=== PATIENT | female | born 1985 | race Two or more races ===

== ENCOUNTER 2016-08-25 13:37 | Emergency (ER) | payer SELFPAY ==
[~2016-08-25] VITALS: Ht 160 cm; Wt 53.7 kg
[~2016-08-25 13:37] MED LIST: ADVAIR 100/501 DISK IH; ADVAIR 250-501 EACH IH; ADVAIR 250/501 DISK IH; ALBUTEROL SULF8.5 GM; ALBUTEROL17 GM IH; AMBIEN10 MG PO; AMBIEN5 MG PO; ATROVENT H200 INHALA IH; AUGMENTIN875 MG PO; Advair HFA 115/21 IH; Ambien PO; BUPROPION XL300 MG PO; BUSPAR10 MG PO; BUSPAR15 MG PO; CITALOPRAM HBR20 MG PO; CLINDAMYCIN HC300 MG PO; CLONAZEPAM0.5 MG PO; CLONAZEPAM1 MG PO; CLONIDINE HCL0.1 MG PO; CORTIZONE-1028 GM TP; CYMBALTA20 MG PO; DELTASONE20 M1 PO; DISKETS40 MG PO; FLEXERIL10 MG PO; FLEXERIL5 MG PO; HYDROXYZINE PAM25 MG PO; IBUPROFEN800 MG PO; K-DUR20 MEQ PO; KLONOPIN1 MG PO; LAMICTAL100 MG PO; LAXATIVE5 M1 PO; LEVAQUIN750 MG PO; LITHIUM CARBON150 MG PO; MEDROL DOSEPAK4 MG PO; METHADONE10 MG PO; METRONIDAZOLE500 MG PO; MIRTAZAPINE30 MG PO; MOBIC7.5 MG PO; MOTRIN IB200 MG PO; MOTRIN600 MG PO; MOTRIN800 MG PO; NO HOME MEDS; NORCO 5/3251 TABLET PO; NUVARING VAGIN1 EACH VG; PERCOCET 5/31 TABLET PO; PRENACARE TABL1 EACH PO; PROAIR HFA8.5 GM IH; PROVENTIL HFA6.7 GM IH; PROVENTIL,2.5 MG/3 M IH; Proventil,Ventolin H IH; REMERON30 M2 PO; Remeron PO; SEROQUEL100 MG PO; Sterapred DS 10 mg U PO; TRAMADOL HCL50 MG PO; TRAZODONE HCL50 MG PO; VENTOLIN HFA18 GM IH; VYVANSE10 MG PO; WELLBUTRIN75 MG PO
[2016-08-25 14:14] LABS: HEMATOCRIT 35.1 % (36.0-46.0); MCH 27.5 PG (29.0-34.0); MCHC 33.9 G/DL (30.0-36.0); MCV 81.1 FL (83-99); MEAN PLAT.VOLUME 10.2 uM^3 (9.5-12.4); PLATELET COUNT 273 K/uL (156-360); RBC DIS.WIDTH-CV 14.3 % (11.8-14.6); RBC DIS.WIDTH-SD 41.3 % (39-53); RED BLOOD COUNT 4.33 M/uL (3.80-5.20); WHITE BLOOD COUNT 6.3 K/uL (4.1-10.2)
[2016-08-25 14:19] LABS: CHLORIDE 106 mEq/L (99-109); POTASSIUM 3.7 mEq/L (3.7-5.4); SODIUM 142 mEq/L (136-147)
[2016-08-25 14:21] LABS: GLUCOSE 81 mg/dL (70-99)
[2016-08-25 14:23] LABS: ANION GAP 7 MEQ/L (2-14); TOTAL BILIRUBIN 0.2 mg/dL (0.0-1.0)
[2016-08-25 14:25] LABS: ALKALINE PHOSPHATASE 40 IU/L (3-129); GFR ESTIMATE (CALCULATED) > 59 mL/min/
[2016-08-25 14:26] LABS: UREA NITROGEN (BUN) 13 mg/dL (9-23)
[2016-08-25 14:28] LABS: LIPASE 30 U/L (1.0-51.0)
[2016-08-25 14:38] LABS: QUANTITATIVE HCG 4.4 MIU/ML
[2016-08-25 15:11] LABS: ADD MIUA? NO; BILIRUBIN NEGATIVE; BLOOD NEGATIVE; COLOR YELLOW ((YELLOW)); GLUCOSE (STRIP) NEGATIVE; KETONES NEGATIVE; LEUKOCYTES NEGATIVE; NITRITE NEGATIVE; PROTEIN (STRIP) NEGATIVE; SPECIFIC GRAVITY 1.007 (1.000-1.030); UCUL ADDED? NO; UROBILINOGEN 0.2 MG/DL (0.2-1.0)
[2016-08-25] MEDS ORDERED: PROTONIX40 MG PO (16:24)
[2016-08-25] MEDS ORDERED: CARAFATE1 GM PO (16:24)
[2016-08-25 16:37] VITALS: BP 113/73
== END 2016-08-25 16:45 | disposition home or self-care (01) ==
LOC: RME 13:37 → EME 13:37 → RME 16:45
DX: R10.9 Unspecified abdominal pain (principal)
CPT/HCPCS: 80053; 81003; 83690; 84702; 85027; 99281; 99283

== ENCOUNTER 2016-09-25 04:05 | Inpatient (IN) | payer OTHER ==
[~2016-09-25] VITALS: Ht 160 cm; Wt 52.3 kg
[~2016-09-25 04:05] MED LIST changes: +CARAFATE1 GM PO; +GABAPENTIN400 MG PO; +LAMICTAL150 M1 PO; +OMEPRAZOLE20 MG PO; +PROTONIX40 MG PO; +VYVANSE50 MG PO; +WELLBUTRIN XL150 MG PO; +WELLBUTRIN XL300 MG PO
[2016-09-25 04:36] LABS: EOSINOPHIL COUNT 0.2 K/uL (0-0.3); HEMATOCRIT 35.7 % (36.0-46.0); IMMATURE GRANULOCYTE (%) 0.2 % (0.0-0.7); IMMATURE GRANULOCYTE COUNT 0.1 K/uL; LYMPHOCYTE COUNT 1.4 K/uL (1.0-2.8); MCH 28.8 PG (29.0-34.0); MCHC 34.7 G/DL (30.0-36.0); MONOCYTE (%) 8.9 % (3-12); MONOCYTE COUNT 0.5 K/uL (0-0.8); NEUTROPHIL (%) 60.2 % (45-76); NEUTROPHIL COUNT 3.2 K/uL (1.8-6.4); PLATELET COUNT 289 K/uL (156-360); RBC DIS.WIDTH-CV 13.9 % (11.8-14.6); RBC DIS.WIDTH-SD 40.8 % (39-53); WHITE BLOOD COUNT 5.3 K/uL (4.1-10.2)
[2016-09-25 04:47] LABS: CHLORIDE 109 mEq/L (99-109); SODIUM 140 mEq/L (136-147)
[2016-09-25 04:49] LABS: GLUCOSE 91 mg/dL (70-99); POTASSIUM 3.1 mEq/L (3.7-5.4)
[2016-09-25 04:50] LABS: ANION GAP 12 MEQ/L (2-14)
[2016-09-25 04:51] LABS: TOTAL BILIRUBIN 0.7 mg/dL (0.0-1.0)
[2016-09-25 04:52] LABS: SERUM ETHYL ALCOHOL < 10 mg/dL
[2016-09-25 04:53] LABS: ALKALINE PHOSPHATASE 55 IU/L (3-129); GFR ESTIMATE (CALCULATED) > 59 mL/min/
[2016-09-25 04:55] LABS: UREA NITROGEN (BUN) 13 mg/dL (9-23)
[2016-09-25 04:56] LABS: SALICYLATE < 5.0 MG/DL (15-30)
[2016-09-25 05:04] LABS: QUANTITATIVE HCG < 4.0 MIU/ML
[2016-09-25] MEDS ORDERED: FISH OIL300 MG PO (07:14)
[2016-09-25] MEDS ORDERED: VITAMIN B-1250 MG PO (07:14)
[2016-09-25 08:47] LABS: ADD MIUA? NO; BILIRUBIN NEGATIVE; BLOOD NEGATIVE; COLOR YELLOW ((YELLOW)); GLUCOSE (STRIP) NEGATIVE; KETONES 15; LEUKOCYTES NEGATIVE; NITRITE NEGATIVE; PROTEIN (STRIP) NEGATIVE; SPECIFIC GRAVITY 1.021 (1.000-1.030); UCUL ADDED? NO; UROBILINOGEN 0.2 MG/DL (0.2-1.0)
[2016-09-25 08:55] LABS: AMPHETAMINE PRESUMPTIVE POSITIVE (500 ng/mL); BARBITURATES NEGATIVE (200 ng/mL); BENZODIAZEPINES PRESUMPTIVE POSITIVE (150 ng/mL); COCAINE PRESUMPTIVE POSITIVE (150 ng/mL); INTERNAL CONTROLS VALID? YES; METHADONE NEGATIVE (200 ng/mL); METHAMPHETAMINE PRESUMPTIVE POSITIVE (500 ng/mL); OPIATES (MORPHINE) NEGATIVE (100 ng/mL); OXYCODONE NEGATIVE (100 ng/mL); PHENCYCLIDINE NEGATIVE (25 ng/mL); PROPOXYPHENE NEGATIVE (300 ng/mL); THC CANNABINOIDS NEGATIVE (50 ng/mL); TRICYCLIC ANTIDEPRESSANTS NEGATIVE (300 ng/mL)
[2016-09-25 08:56] LABS: ADD MEDTOX COMMENT Y
[2016-09-25 09:29] LABS: BENZODIAZEPINES, URINE SCREEN POSITIVE (200 ng/mL)
[2016-09-25 20:45] VITALS: BP 110/63
[2016-09-25 21:33] VITALS: BP 110/63
[2016-09-26 07:50] VITALS: BP 110/52
[2016-09-26 15:47] VITALS: BP 114/74
[2016-09-27 07:56] VITALS: BP 107/60
[2016-09-27 15:33] VITALS: BP 100/62
[2016-09-28 09:49] VITALS: BP 130/56
[2016-09-28 15:45] VITALS: BP 129/80
[2016-09-29 09:18] VITALS: BP 110/62
[2016-09-29] MEDS ORDERED: GABAPENTIN300 MG PO (09:32)
[2016-09-29] MEDS ORDERED: RISPERDAL2 MG PO (09:32)
== END 2016-09-29 11:13 | disposition home or self-care (01) | DRG 880 ==
LOC: EME 04:05 → EDOF 14:39 → 1WEST 14:39
PROVIDERS: Emergency Medicine
DX: F41.1 Generalized anxiety disorder (principal); F15.180 Other stimulant abuse with stimulant-induced anxiety disorder; F11.20 Opioid dependence, uncomplicated; F19.20 Other psychoactive substance dependence, uncomplicated; F31.89 Other bipolar disorder; F14.180 Cocaine abuse with cocaine-induced anxiety disorder; F43.10 Post-traumatic stress disorder, unspecified; J45.909 Unspecified asthma, uncomplicated; E87.6 Hypokalemia; S60.812A Abrasion of left wrist, initial encounter; X78.9XXA Intentional self-harm by unspecified sharp object, initial encounter
CPT/HCPCS: 80053; 81003; 84132; 84702; 84999; 85025; 90837; 94640; 94640 76; 97150 GO; 97166 GO; 99202; 99281; 99285; G0480; Q0177

== ENCOUNTER 2016-10-09 18:30 | Emergency (ER) | payer OTHER ==
[~2016-10-09] VITALS: Ht 160 cm; Wt 52.3 kg
[~2016-10-09 18:30] MED LIST changes: +FISH OIL300 MG PO; +GABAPENTIN300 MG PO; +RISPERDAL2 MG PO; +VITAMIN B-1250 MG PO
[2016-10-09 19:40] LABS: ADD MIUA? YES; BILIRUBIN NEGATIVE; BLOOD LARGE; COLOR YELLOW ((YELLOW)); GLUCOSE (STRIP) NEGATIVE; KETONES NEGATIVE; LEUKOCYTES TRACE; NITRITE NEGATIVE; PROTEIN (STRIP) 30; SPECIFIC GRAVITY 1.006 (1.000-1.030); UROBILINOGEN 0.2 MG/DL (0.2-1.0)
[2016-10-09 19:51] LABS: BACTERIA RARE /HPF; EPITHELIAL CELLS RARE /HPF; MUCUS TRACE /LPF; RED BLOOD CELLS TNTC /HPF (0-5); UCUL ADDED? NO; UNCLASSIFIED CRYSTALS 3+ /HPF; WHITE BLOOD CELLS 0-5 /HPF (0-5)
[2016-10-09 19:52] LABS: CHLORIDE 104 mEq/L (99-109); SODIUM 139 mEq/L (136-147)
[2016-10-09 19:54] LABS: GLUCOSE 82 mg/dL (70-99)
[2016-10-09 19:56] LABS: ANION GAP 10 MEQ/L (2-14); TOTAL BILIRUBIN 0.3 mg/dL (0.0-1.0)
[2016-10-09 19:58] LABS: ALKALINE PHOSPHATASE 55 IU/L (3-129); GFR ESTIMATE (CALCULATED) > 59 mL/min/
[2016-10-09 19:59] LABS: UREA NITROGEN (BUN) 11 mg/dL (9-23)
[2016-10-09 20:06] LABS: QUANTITATIVE HCG < 4.0 MIU/ML
[2016-10-09 20:16] LABS: HEMATOCRIT 39.4 % (36.0-46.0); MCH 28.8 PG (29.0-34.0); MCV 84.7 FL (83-99); MEAN PLAT.VOLUME 9.8 uM^3 (9.5-12.4); PLATELET COUNT 302 K/uL (156-360); RBC DIS.WIDTH-CV 13.4 % (11.8-14.6); RED BLOOD COUNT 4.65 M/uL (3.80-5.20); WHITE BLOOD COUNT 4.9 K/uL (4.1-10.2)
[2016-10-09] MEDS ORDERED: TORADOL10 MG PO (20:43)
[2016-10-09 20:55] VITALS: BP 135/99
== END 2016-10-09 20:57 | disposition home or self-care (01) ==
LOC: EME 18:30
DX: N94.6 Dysmenorrhea, unspecified (principal); F17.200 Nicotine dependence, unspecified, uncomplicated
CPT/HCPCS: 80053; 81003; 84702; 85027; 86900; 86901; 99281; 99284

== ENCOUNTER 2016-10-15 13:34 | Inpatient (IN) | payer OTHER ==
[~2016-10-15] VITALS: Ht 160 cm; Wt 58.3 kg
[~2016-10-15 13:34] MED LIST changes: +TORADOL10 MG PO
[2016-10-15] MEDS ORDERED: VIVITROL380 MG/3.4 IM (14:07)
[2016-10-15] MEDS ORDERED: ADVAIR 250/501 DISK IH (14:09)
[2016-10-15] MEDS ORDERED: SEROQUEL100 MG PO (14:10)
[2016-10-15] MEDS ORDERED: VISTARIL25 MG PO (14:10)
[2016-10-15] MEDS ORDERED: VYVANSE50 MG PO (14:13)
[2016-10-15 15:10] LABS: EOSINOPHIL (%) 3.7 % (0-5); EOSINOPHIL COUNT 0.2 K/uL (0-0.3); IMMATURE GRANULOCYTE (%) 0.2 % (0.0-0.7); IMMATURE GRANULOCYTE COUNT 0.1 K/uL; LYMPHOCYTE COUNT 1.6 K/uL (1.0-2.8); MCH 29.2 PG (29.0-34.0); MCV 83.5 FL (83-99); MEAN PLAT.VOLUME 9.9 uM^3 (9.5-12.4); MONOCYTE (%) 7.7 % (3-12); MONOCYTE COUNT 0.5 K/uL (0-0.8); NEUTROPHIL (%) 61.5 % (45-76); NEUTROPHIL COUNT 3.7 K/uL (1.8-6.4); PLATELET COUNT 274 K/uL (156-360); RBC DIS.WIDTH-CV 13.2 % (11.8-14.6); RBC DIS.WIDTH-SD 39.8 % (39-53); RED BLOOD COUNT 4.31 M/uL (3.80-5.20)
[2016-10-15 15:19] LABS: CHLORIDE 105 mEq/L (99-109); SODIUM 139 mEq/L (136-147)
[2016-10-15 15:21] LABS: GLUCOSE 87 mg/dL (70-99)
[2016-10-15 15:22] LABS: ANION GAP 9 MEQ/L (2-14)
[2016-10-15 15:25] LABS: GFR ESTIMATE (CALCULATED) > 59 mL/min/
[2016-10-15 15:26] LABS: UREA NITROGEN (BUN) 7 mg/dL (9-23)
[2016-10-15 15:27] LABS: CREATINE KINASE 123 IU/L (1-294)
[2016-10-15 15:38] LABS: QUANTITATIVE HCG < 4.0 MIU/ML
[2016-10-15 15:57] LABS: ADD MEDTOX COMMENT Y; AMPHETAMINE PRESUMPTIVE POSITIVE (500 ng/mL); BARBITURATES NEGATIVE (200 ng/mL); BENZODIAZEPINES PRESUMPTIVE POSITIVE (150 ng/mL); COCAINE NEGATIVE (150 ng/mL); INTERNAL CONTROLS VALID? YES; METHADONE NEGATIVE (200 ng/mL); METHAMPHETAMINE NEGATIVE (500 ng/mL); OPIATES (MORPHINE) NEGATIVE (100 ng/mL); OXYCODONE NEGATIVE (100 ng/mL); PHENCYCLIDINE NEGATIVE (25 ng/mL); PROPOXYPHENE NEGATIVE (300 ng/mL); THC CANNABINOIDS NEGATIVE (50 ng/mL); TRICYCLIC ANTIDEPRESSANTS NEGATIVE (300 ng/mL)
[2016-10-15] MEDS ORDERED: IBUPROFEN400 MG PO (16:47)
[2016-10-15] MEDS ORDERED: WELLBUTRIN XL150 MG PO (16:47)
[2016-10-15] MEDS ORDERED: LYRICA50 MG PO (16:48)
[2016-10-15] MEDS ORDERED: PROAIR HFA8.5 GM IH (16:48)
[2016-10-15] MEDS ORDERED: RISPERDAL2 MG PO (16:48)
[2016-10-15] MEDS ORDERED: NEURONTIN400 MG PO (16:48)
[2016-10-15] MEDS ORDERED: WOMEN'S BIOMUL1 EACH PO (16:49)
[2016-10-15] MEDS ORDERED: CYANOCOBALAM1000 MCG PO (16:49)
[2016-10-15 18:38] LABS: BENZODIAZEPINES QUANT VALUE 0 NG/ML
[2016-10-15 18:44] LABS: BENZODIAZEPINES, URINE SCREEN Negative (200 ng/mL)
[2016-10-15 20:17] VITALS: BP 122/62
[2016-10-16] VITALS: BP 102/62
[2016-10-16 04:17] VITALS: BP 100/62
[2016-10-16 06:12] LABS: ANION GAP 6 MEQ/L (2-14); CHLORIDE 109 MEQ/L (99-109); GFR ESTIMATE (CALCULATED) > 59 mL/min/; GLUCOSE 79 mg/dL (70-99); POTASSIUM 3.8 MEQ/L (3.7-5.4); SAMPLE HEMOLYSIS CHECK 0; SAMPLE ICTERIC CHECK 0; SAMPLE LIPEMIA CHECK 0; SODIUM 141 MEQ/L (136-147); UREA NITROGEN (BUN) 8 mg/dL (9-23)
[2016-10-16 08:03] VITALS: BP 115/70
[2016-10-16 11:25] VITALS: BP 100/75
[2016-10-16 15:41] VITALS: BP 103/57
[2016-10-16 20:17] VITALS: BP 100/55
[2016-10-17 00:46] VITALS: BP 98/52
[2016-10-17 03:44] VITALS: BP 92/49
[2016-10-17 07:36] LABS: EOSINOPHIL (%) 5.6 % (0-5); EOSINOPHIL COUNT 0.3 K/uL (0-0.3); HEMATOCRIT 32.3 % (36.0-46.0); IMMATURE GRANULOCYTE (%) 0.2 % (0.0-0.7); LYMPHOCYTE COUNT 1.8 K/uL (1.0-2.8); MCHC 33.1 G/DL (30.0-36.0); MCV 87.5 FL (83-99); MEAN PLAT.VOLUME 10.4 uM^3 (9.5-12.4); MONOCYTE (%) 5.6 % (3-12); MONOCYTE COUNT 0.3 K/uL (0-0.8); NEUTROPHIL (%) 51.9 % (45-76); NEUTROPHIL COUNT 2.6 K/uL (1.8-6.4); PLATELET COUNT 238 K/uL (156-360); RBC DIS.WIDTH-CV 13.9 % (11.8-14.6); RBC DIS.WIDTH-SD 44.5 % (39-53); RED BLOOD COUNT 3.69 M/uL (3.80-5.20)
[2016-10-17 07:47] LABS: ANION GAP 5 MEQ/L (2-14); CHLORIDE 110 MEQ/L (99-109); GFR ESTIMATE (CALCULATED) > 59 mL/min/; GLUCOSE 85 mg/dL (70-99); POTASSIUM 4.2 MEQ/L (3.7-5.4); SAMPLE HEMOLYSIS CHECK 0; SAMPLE ICTERIC CHECK 0; SAMPLE LIPEMIA CHECK 0; SODIUM 141 MEQ/L (136-147); UREA NITROGEN (BUN) 12 mg/dL (9-23)
[2016-10-17 08:00] VITALS: BP 106/65
[2016-10-17 11:23] VITALS: BP 119/60
[2016-10-17] MEDS ORDERED: KEPPRA500 MG PO (14:23)
== END 2016-10-17 15:37 | disposition home or self-care (01) | DRG 101 ==
LOC: EME 13:34 → 4SOUTH 17:10 → EDOF 17:10 → 4SOUTH 19:35
PROVIDERS: Emergency Medicine; Internal Medicine
DX: G40.409 Other generalized epilepsy and epileptic syndromes, not intractable, without status epilepticus (principal); F11.20 Opioid dependence, uncomplicated; F31.30 Bipolar disorder, current episode depressed, mild or moderate severity, unspecified; J45.909 Unspecified asthma, uncomplicated; F41.9 Anxiety disorder, unspecified; F19.10 Other psychoactive substance abuse, uncomplicated
CPT/HCPCS: 70450; 80048; 82550; 84702; 84999; 85025; 93005; 94640; 94640 76; 95819; 99202; 99281; 99285; J1200; J1885; J1953; J2060; J2765; J7030; J7050

== ENCOUNTER 2016-10-31 03:15 | Emergency (ER) | payer OTHER ==
[~2016-10-31] VITALS: Ht 160 cm; Wt 50.9 kg
[~2016-10-31 03:15] MED LIST changes: +CYANOCOBALAM1000 MCG PO; +IBUPROFEN400 MG PO; +KEPPRA500 MG PO; +LYRICA50 MG PO; +NEURONTIN400 MG PO; +VISTARIL25 MG PO; +VIVITROL380 MG/3.4 IM; +WOMEN'S BIOMUL1 EACH PO
[2016-10-31] MEDS ORDERED: PREDNISONE50 MG PO (05:33)
[2016-10-31 05:37] VITALS: BP 110/70
== END 2016-10-31 05:47 | disposition home or self-care (01) ==
LOC: EME 03:15
DX: F11.10 Opioid abuse, uncomplicated (principal); J45.909 Unspecified asthma, uncomplicated; Z87.891 Personal history of nicotine dependence
CPT/HCPCS: 71020; 94640; 99281; 99283; J2405; J7512

== ENCOUNTER 2016-11-17 21:13 | Emergency (ER) | payer OTHER ==
[~2016-11-17] VITALS: Ht 160 cm; Wt 51.2 kg
[~2016-11-17 21:13] MED LIST changes: +PREDNISONE50 MG PO
[2016-11-17 22:36] LABS: ADD MIUA? NO; BILIRUBIN NEGATIVE; BLOOD NEGATIVE; COLOR STRAW ((YELLOW)); GLUCOSE (STRIP) NEGATIVE; KETONES NEGATIVE; LEUKOCYTES NEGATIVE; NITRITE NEGATIVE; PROTEIN (STRIP) NEGATIVE; SPECIFIC GRAVITY 1.003 (1.000-1.030); UCUL ADDED? NO; UROBILINOGEN 0.2 MG/DL (0.2-1.0)
[2016-11-17 22:52] LABS: HEMATOCRIT 40.5 % (36.0-46.0); MCH 27.9 PG (29.0-34.0); MCHC 33.6 G/DL (30.0-36.0); RBC DIS.WIDTH-CV 12.4 % (11.8-14.6); RBC DIS.WIDTH-SD 37.7 % (39-53); RED BLOOD COUNT 4.88 M/uL (3.80-5.20); WHITE BLOOD COUNT 5.8 K/uL (4.1-10.2)
[2016-11-17 23:05] LABS: CHLORIDE 105 mEq/L (99-109); POTASSIUM 3.6 mEq/L (3.7-5.4); SODIUM 139 mEq/L (136-147)
[2016-11-17 23:07] LABS: GLUCOSE 78 mg/dL (70-99)
[2016-11-17 23:08] LABS: ANION GAP 15 MEQ/L (2-14)
[2016-11-17 23:09] LABS: TOTAL BILIRUBIN 0.4 mg/dL (0.0-1.0)
[2016-11-17 23:10] LABS: SERUM ETHYL ALCOHOL < 10 mg/dL
[2016-11-17 23:11] LABS: ALKALINE PHOSPHATASE 51 IU/L (3-129); GFR ESTIMATE (CALCULATED) > 59 mL/min/
[2016-11-17 23:13] LABS: UREA NITROGEN (BUN) 9 mg/dL (9-23)
[2016-11-17 23:14] LABS: SALICYLATE < 5.0 MG/DL (15-30)
[2016-11-17 23:15] LABS: LIPASE 15 U/L (1.0-51.0)
[2016-11-17] MEDS ORDERED: ZOFRAN4 MG PO (23:16)
[2016-11-17] MEDS ORDERED: ATARAX,VISTARIL50 MG PO (23:16)
[2016-11-17 23:26] LABS: QUANTITATIVE HCG < 4.0 MIU/ML
[2016-11-17 23:43] VITALS: BP 114/80
[2016-11-17 23:53] LABS: MEAN PLAT.VOLUME 10.7 uM^3 (9.5-12.4); PLATELET COUNT 187 K/uL (156-360)
== END 2016-11-17 23:45 | disposition home or self-care (01) ==
LOC: EME 21:13
PROVIDERS: Emergency Medicine
DX: F41.9 Anxiety disorder, unspecified (principal); R10.13 Epigastric pain; F13.21 Sedative, hypnotic or anxiolytic dependence, in remission; F10.21 Alcohol dependence, in remission; N89.8 Other specified noninflammatory disorders of vagina; J45.909 Unspecified asthma, uncomplicated; Z87.891 Personal history of nicotine dependence
CPT/HCPCS: 80053; 81003; 83690; 84702; 85027; 93005; 99281; 99284; G0480; Q0177

== ENCOUNTER 2016-12-12 17:38 | Emergency (ER) | payer OTHER ==
[~2016-12-12] VITALS: Ht 160 cm; Wt 53.6 kg
[~2016-12-12 17:38] MED LIST changes: +ATARAX,VISTARIL50 MG PO; +ZOFRAN4 MG PO
[2016-12-12 18:35] LABS: HEMATOCRIT 38.6 % (36.0-46.0); MCH 28.2 PG (29.0-34.0); MCHC 34.7 G/DL (30.0-36.0); MCV 81.1 FL (83-99); MEAN PLAT.VOLUME 10.2 uM^3 (9.5-12.4); RBC DIS.WIDTH-CV 12.2 % (11.8-14.6); RBC DIS.WIDTH-SD 36.5 % (39-53); RED BLOOD COUNT 4.76 M/uL (3.80-5.20); WHITE BLOOD COUNT 5.3 K/uL (4.1-10.2)
[2016-12-12 18:36] LABS: PLATELET COUNT 300 K/uL (156-360)
[2016-12-12 18:44] LABS: CHLORIDE 108 mEq/L (99-109); POTASSIUM 3.5 mEq/L (3.7-5.4); SODIUM 141 mEq/L (136-147)
[2016-12-12 18:45] LABS: GLUCOSE 141 mg/dL (70-99)
[2016-12-12 18:47] LABS: ANION GAP 13 MEQ/L (2-14)
[2016-12-12 18:49] LABS: GFR ESTIMATE (CALCULATED) > 59 mL/min/
[2016-12-12 18:50] LABS: UREA NITROGEN (BUN) 12 mg/dL (9-23)
[2016-12-12 18:52] LABS: TROP-I INTERPRETATION NEGATIVE; TROPONIN-I < 0.01 ng/mL (0.0-0.30)
[2016-12-12] MEDS ORDERED: NARCAN4 MG NS (20:26)
[2016-12-12 20:39] VITALS: BP 103/63
== END 2016-12-12 20:41 | disposition home or self-care (01) ==
LOC: EME → EDBD 17:38 → EME 17:38
PROVIDERS: Emergency Medicine
DX: R07.89 Other chest pain (principal); R00.0 Tachycardia, unspecified; T40.5X1A Poisoning by cocaine, accidental (unintentional), initial encounter; T40.1X1A Poisoning by heroin, accidental (unintentional), initial encounter; F14.10 Cocaine abuse, uncomplicated; F11.10 Opioid abuse, uncomplicated; J45.909 Unspecified asthma, uncomplicated; F31.9 Bipolar disorder, unspecified; F41.9 Anxiety disorder, unspecified; F43.10 Post-traumatic stress disorder, unspecified; F17.200 Nicotine dependence, unspecified, uncomplicated
CPT/HCPCS: 71020; 80048; 84484; 85027; 93005; 99281; 99284; J2060; J7030

== ENCOUNTER 2017-01-25 14:00 | Inpatient (IN) | payer OTHER ==
[~2017-01-25] VITALS: Ht 157.5 cm; Wt 51.0 kg
[~2017-01-25 14:00] MED LIST changes: +NARCAN4 MG NS
[2017-01-25 15:02] LABS: BASOPHIL COUNT 0.1 K/uL (0-0.1); EOSINOPHIL COUNT 0.2 K/uL (0-0.3); HEMATOCRIT 40.7 % (36.0-46.0); IMMATURE GRANULOCYTE (%) 0.3 % (0.0-0.7); LYMPHOCYTE COUNT 1.8 K/uL (1.0-2.8); MCHC 34.2 G/DL (30.0-36.0); MCV 82.1 FL (83-99); MONOCYTE (%) 7.8 % (3-12); MONOCYTE COUNT 0.6 K/uL (0-0.8); NEUTROPHIL (%) 65.4 % (45-76); PLATELET COUNT 277 K/uL (156-360); RBC DIS.WIDTH-CV 12.6 % (11.8-14.6); RBC DIS.WIDTH-SD 38.2 % (39-53); RED BLOOD COUNT 4.96 M/uL (3.80-5.20); WHITE BLOOD COUNT 7.7 K/uL (4.1-10.2)
[2017-01-25 15:11] LABS: CHLORIDE 102 mEq/L (99-109); POTASSIUM 3.8 mEq/L (3.7-5.4); SODIUM 137 mEq/L (136-147)
[2017-01-25 15:14] LABS: GLUCOSE 116 mg/dL (70-99)
[2017-01-25 15:15] LABS: ANION GAP 9 MEQ/L (2-14)
[2017-01-25 15:16] LABS: TOTAL BILIRUBIN 0.4 mg/dL (0.0-1.0)
[2017-01-25 15:16] LABS: ADD MIUA? YES; BILIRUBIN NEGATIVE; BLOOD NEGATIVE; COLOR AMBER ((YELLOW)); GLUCOSE (STRIP) NEGATIVE; KETONES 5; LEUKOCYTES MODERATE; NITRITE NEGATIVE; PROTEIN (STRIP) 100; SPECIFIC GRAVITY 1.027 (1.000-1.030); UROBILINOGEN 0.2 MG/DL (0.2-1.0)
[2017-01-25 15:17] LABS: ALKALINE PHOSPHATASE 46 IU/L (3-129); GFR ESTIMATE (CALCULATED) > 59 mL/min/
[2017-01-25 15:18] LABS: UREA NITROGEN (BUN) 10 mg/dL (9-23)
[2017-01-25 15:23] LABS: TROP-I INTERPRETATION NEGATIVE; TROPONIN-I < 0.01 ng/mL (0.0-0.30)
[2017-01-25 15:26] LABS: QUANTITATIVE HCG < 4.0 MIU/ML
[2017-01-25 15:33] LABS: RED BLOOD CELLS NONE SEEN /HPF (0-5)
[2017-01-25 15:34] LABS: BACTERIA 3+ /HPF; CALCIUM OXALATE CRYSTALS 2+ /HPF; CASTS PRESENT /LPF; CRYSTALS PRESENT; EPITHELIAL CELLS 2+ /HPF; HYALINE CASTS 20-30 /LPF; MUCUS 2+ /LPF; UCUL ADDED? YES
[2017-01-25 15:35] LABS: ADD MEDTOX COMMENT Y; AMPHETAMINE NEGATIVE (500 ng/mL); BARBITURATES NEGATIVE (200 ng/mL); BENZODIAZEPINES PRESUMPTIVE POSITIVE (150 ng/mL); COCAINE PRESUMPTIVE POSITIVE (150 ng/mL); INTERNAL CONTROLS VALID? YES; METHADONE NEGATIVE (200 ng/mL); METHAMPHETAMINE NEGATIVE (500 ng/mL); OPIATES (MORPHINE) PRESUMPTIVE POSITIVE (100 ng/mL); OXYCODONE PRESUMPTIVE POSITIVE (100 ng/mL); PHENCYCLIDINE NEGATIVE (25 ng/mL); PROPOXYPHENE NEGATIVE (300 ng/mL); THC CANNABINOIDS NEGATIVE (50 ng/mL); TRICYCLIC ANTIDEPRESSANTS NEGATIVE (300 ng/mL)
[2017-01-25 16:53] LABS: BENZODIAZEPINES, URINE SCREEN POSITIVE (200 ng/mL)
[2017-01-25 19:42] VITALS: BP 132/75
[2017-01-25] MEDS ORDERED: VENTOLIN HFA18 GM IH (20:22)
[2017-01-25] MEDS ORDERED: ADVAIR HFA120 INHALA IH (20:25)
[2017-01-25] MEDS ORDERED: FORFIVO XL450 MG PO (20:26)
[2017-01-25] MEDS ORDERED: RISPERDAL2 MG PO (20:27)
[2017-01-25] MEDS ORDERED: LAMOTRIGINE150 MG PO (20:27)
[2017-01-25] MEDS ORDERED: ZOLPIDEM TARTRA10 MG PO (20:28)
[2017-01-25] MEDS ORDERED: KEPPRA750 MG PO (20:28)
[2017-01-25] MEDS ORDERED: BACTRIM,SEPT1 TABLET PO (21:02)
[2017-01-26 07:44] VITALS: BP 115/55
[2017-01-26 15:18] VITALS: BP 120/81
[2017-01-27 07:34] VITALS: BP 118/70
[2017-01-27 15:41] VITALS: BP 114/84
[2017-01-28 07:39] VITALS: BP 129/78
[2017-01-28] MEDS ORDERED: BACTRIM,SEPT1 TABLET PO (09:49)
[2017-01-28] MEDS ORDERED: BUPROPION XL150 MG PO (09:49)
== END 2017-01-28 12:10 | disposition home or self-care (01) | DRG 881 ==
LOC: EME 14:00 → 1WEST 18:10 → EDOF 18:10 → 1WEST 19:34
PROVIDERS: Emergency Medicine
DX: F32.9 Major depressive disorder, single episode, unspecified (principal); N39.0 Urinary tract infection, site not specified; F11.10 Opioid abuse, uncomplicated; R45.851 Suicidal ideations; F13.10 Sedative, hypnotic or anxiolytic abuse, uncomplicated; F14.10 Cocaine abuse, uncomplicated; J45.909 Unspecified asthma, uncomplicated; Z87.891 Personal history of nicotine dependence
CPT/HCPCS: 71010; 71020; 80053; 81003; 83605; 84484; 84702; 84999; 85025; 87040; 87077; 87086; 87186; 90837; 93005; 94640; 94640 76; 99202; 99281; 99285; J2060

== ENCOUNTER → 2017-05-15 | Day surgery (SDC) | payer OTHER ==
[~2017-05-15] VITALS: Ht 160 cm; Wt 54.0 kg
[~2017-05-15] MED LIST changes: +ADVAIR HFA120 INHALA IH; +BACTRIM,SEPT1 TABLET PO; +BUPROPION XL150 MG PO; +FORFIVO XL450 MG PO; +KEPPRA750 MG PO; +LAMOTRIGINE150 MG PO; +PEN-VEE K,VEET500 MG PO; +RISPERDAL3 MG PO; +VYVANSE60 MG PO; +ZOLPIDEM TARTRA10 MG PO
[2017-05-15 09:12] VITALS: BP 114/56
[2017-05-15 10:08] LABS: AMPHETAMINES QUANT VALUE 0 NG/ML; BARBITUATES QUANT VALUE 0 NG/ML; BENZODIAZEPINES, URINE SCREEN POSITIVE (200 ng/mL); MARIJUANA QUANT VALUE 0 NG/ML; PHENCYCLIDINE QUANT VALUE 0 NG/ML
[2017-05-20 12:25] LABS: INTERNAL CONTROL VALID? YES
== END | disposition home or self-care (01) ==
LOC: SDC 08:47
PROVIDERS: Surgery
DX: K43.9 Ventral hernia without obstruction or gangrene (principal); F19.90 Other psychoactive substance use, unspecified, uncomplicated; Z53.09 Procedure and treatment not carried out because of other contraindication
CPT/HCPCS: 80306 90; 84703; J2250; J3010

== ENCOUNTER 2017-09-11 23:38 | Emergency (ER) | payer OTHER ==
[~2017-09-11] VITALS: Ht 160 cm; Wt 42.4 kg
[~2017-09-11 23:38] MED LIST changes: +FLAGYL500 MG PO
[2017-09-11 23:44] VITALS: BP 102/65
== END 2017-09-12 00:57 | disposition left against medical advice (07) ==
LOC: EME 23:38
DX: N89.8 Other specified noninflammatory disorders of vagina (principal); Z53.21 Procedure and treatment not carried out due to patient leaving prior to being seen by health care provider
CPT/HCPCS: 81003; 87086

== ENCOUNTER 2018-01-18 18:18 | Emergency (ER) | payer OTHER ==
[~2018-01-18] VITALS: Ht 160 cm; Wt 54.6 kg
[2018-01-18 19:44] LABS: APPEARANCE CLOUDY ((CLEAR)); BILIRUBIN NEGATIVE; BLOOD NEGATIVE; GLUCOSE (STRIP) NEGATIVE; KETONES 5; LEUKOCYTES NEGATIVE; NITRITE NEGATIVE; PROTEIN (STRIP) 30; SPECIFIC GRAVITY 1.034 (1.000-1.030)
[2018-01-18 19:45] LABS: HEMATOCRIT 37.1 % (36.0-46.0); HEMOGLOBIN 12.7 G/DL (11.9-15.5); MCH 28.9 PG (29.0-34.0); MCHC 34.2 G/DL (30.0-36.0); MCV 84.3 FL (83-99); PLATELET COUNT 281 K/uL (156-360); RBC DIS.WIDTH-CV 13.2 % (11.8-14.6); RBC DIS.WIDTH-SD 40.5 % (39-53); WHITE BLOOD COUNT 6.8 K/uL (4.1-10.2)
[2018-01-18 19:45] LABS: COLOR AMBER ((YELLOW))
[2018-01-18 19:54] LABS: CHLORIDE 103 mEq/L (99-109); POTASSIUM 3.3 mEq/L (3.7-5.4); SODIUM 139 mEq/L (136-147)
[2018-01-18 19:56] LABS: GLUCOSE 77 mg/dL (70-99)
[2018-01-18 20:00] LABS: CREATININE 0.8 mg/dL (0.6-1.3); GFR ESTIMATE (CALCULATED) > 59 mL/min/; UREA NITROGEN (BUN) 11 mg/dL (9-23)
[2018-01-18 20:05] LABS: EPITHELIAL CELLS 3+ /HPF; RED BLOOD CELLS 0-5 /HPF (0-5); WHITE BLOOD CELLS 0-5 /HPF (0-5)
[2018-01-18 20:06] LABS: BACTERIA NONE SEEN /HPF; MUCUS 4+ /LPF
[2018-01-18 20:09] LABS: QUANTITATIVE HCG < 4.0 MIU/ML
[2018-01-18 21:01] LABS: SOURCE SWAB
[2018-01-18 22:15] VITALS: BP 105/66
== END 2018-01-18 22:20 | disposition home or self-care (01) ==
LOC: EME 18:18
PROVIDERS: Nurse Practitioner Family
DX: K59.03 Drug induced constipation (principal); T40.3X5A Adverse effect of methadone, initial encounter; R10.9 Unspecified abdominal pain; K42.9 Umbilical hernia without obstruction or gangrene; Z79.891 Long term (current) use of opiate analgesic; F32.9 Major depressive disorder, single episode, unspecified; F43.10 Post-traumatic stress disorder, unspecified; J45.909 Unspecified asthma, uncomplicated; F17.200 Nicotine dependence, unspecified, uncomplicated
CPT/HCPCS: 74022; 80048; 81003; 84702; 85027; 87210; 87491; 87591; 99281; 99284